=== PATIENT | female | born 1970 | race Caucasian/White ===

== ENCOUNTER 2025-04-27 05:53 | Day surgery (SDC) | payer OTHER, SELFPAY ==
[2025-04-23 14:16] VITALS: BMI 34.8
[2025-04-27] VITALS (9 sets, daily range): BP systolic 129–151; BP diastolic 83–101; BMI 34.8
[2025-04-27] MEDS: CELEBREX 200 MG PO (06:23)
[2025-04-27] MEDS: TYLENOL 1000 MG PO (06:23)
[2025-04-27] MEDS: NORMOSOL-R/PLASMALYTE-A 1000 IV (06:24)
[2025-04-27] MEDS: DILAUDID 0.25 MG IV ×2 (07:55→08:11)
[2025-04-27] MEDS: ROXICODONE 5 MG PO (08:49)
== END 2025-04-27 09:40 | disposition home or self-care (01) ==
LOC: SDS 05:53
PROVIDERS: ATTENDING PHYSICIAN Specialist
DX: S83.281A Other tear of lateral meniscus, current injury, right knee, initial encounter (principal); X58.XXXA Exposure to other specified factors, initial encounter
CPT/HCPCS: 29881; 36415; 93005